=== PATIENT | female | born 1985 | race Caucasian/White ===

== ENCOUNTER 2022-12-29 11:46 | Outpatient (CLI) | payer SELFPAY ==
[2022-12-29 12:19] VITALS: BP 106/57; PULSE 64; RESP 17; TEMP 36.8; O2SAT 97; BMI 30.2
[2022-12-29 12:25] VITALS: BMI 30.2
[2022-12-29 12:29] LABS: Microscopic, Urine URINE MICROSCOPIC (MICROSCOPIC)
[2022-12-29 12:35] LABS: Appearance,Urine CLEAR (Clear); Bilirubin,Urine Negative (Negative); Blood, Urine Negative (Negative); Color,Urine YELLOW (Yellow); Fetal Membrane Rupture (Rapid) Negative (Negative); Glucose,Urine (UA) Negative (Negative); Ketones,Urine Negative (Negative); Leukocyte Esterase,Urine Negative (Negative); Nitrate,Urine Negative (Negative); Protein,Urine Negative (Negative); Specific Gravity, Urine <= 1.005 (1.005-1.030); Urobilinogen,Urine 0.2 EU/dl (0.2)
[2022-12-29 12:47] LABS: Amphetamine/Metha Screen,Urine Negative ng/ml (<1000); Benzodiazepines Screen,Urine Negative ng/ml (<200)
[2022-12-29 12:48] LABS: Barbiturates Screen,Urine Negative ng/ml (<200)
[2022-12-29 12:49] LABS: Bacteria,Urine Trace /lpf; Cannabinoid Screen,Urine Negative ng/ml (<50); Methadone Screen,Urine Negative ng/ml (<300); Squamous Epithelial Cell,Urine Occasional #/hpf (0-5)
[2022-12-29 12:50] LABS: Cocaine Screen,Urine Negative ng/ml (<300)
[2022-12-29 12:51] LABS: Opiate Screen,Urine Negative ng/ml (<300); Phencyclidine Screen,Urine Negative ng/ml (<25)
== END 2022-12-29 13:25 | disposition home or self-care (01) ==
LOC: OBOUT 11:48 → OB 11:49
PROVIDERS: Visit Provider Obstetrics & Gynecology
DX: O60.03 Preterm labor without delivery, third trimester (principal); Z3A.37 37 weeks gestation of pregnancy
CPT/HCPCS: 59025; 80305; 81001; 84112; G0463

== ENCOUNTER → 2023-01-03 23:08 | Outpatient (CLI) | payer SELFPAY | PROVIDERS: PCP Nurse Practitioner Obstetrics & Gynecology; Visit Provider Nurse Practitioner Obstetrics & Gynecology | DX: Z34.93 Encounter for supervision of normal pregnancy, unspecified, third trimester (principal); Z3A.37 37 weeks gestation of pregnancy | CPT/HCPCS: 86403 ==

== ENCOUNTER 2023-01-15 04:59 | Inpatient (IN) | payer SELFPAY ==
[2023-01-15 05:04] VITALS: BMI 30.2
[2023-01-15 05:38] LABS: Microscopic, Urine URINE MICROSCOPIC (MICROSCOPIC)
[2023-01-15 05:42] LABS: Appearance,Urine CLEAR (Clear); Bilirubin,Urine Negative (Negative); Blood, Urine Negative (Negative); Color,Urine YELLOW (Yellow); Glucose,Urine (UA) Negative (Negative); Ketones,Urine Negative (Negative); Leukocyte Esterase,Urine Negative (Negative); Nitrate,Urine Negative (Negative); Protein,Urine Negative (Negative); Urobilinogen,Urine 0.2 EU/dl (0.2)
[2023-01-15 05:43] LABS: Basophils % 0.2 % (0.1-2.0); Eosinophils # 0.1 K/mm3 (0.0-0.4); Eosinophils % 1.1 % (0.1-12.0); Hematocrit 36.4 % (37.0-47.0); Hemoglobin 11.5 g/dL (12.2-16.2); Lymphocytes # 1.8 K/mm3 (0.7-4.5); Lymphocytes % 29.6 % (10-50); Mean Corpuscular HGB Conc 31.7 g/dL (31.8-35.4); Mean Corpuscular Hemoglobin 25.5 pg (27.0-31.2); Mean Corpuscular Volume 80.4 fl (81-99); Mean Platelet Volume 8.2 fl (7.4-10.4); Monocytes # 0.5 K/mm3 (0.1-1.0); Neutrophils # 3.5 K/mm3 (1.8-7.8); Platelet Count 223 K/mm3 (142-424); Red Blood Count 4.52 M/mm3 (4.20-5.40); Red Cell Distribution Width 15.4 % (11.5-17.5); White Blood Count 5.9 K/mm3 (4.8-10.8)
[2023-01-15 05:44] VITALS: BP 120/70; PULSE 83; RESP 18; TEMP 36.8; O2SAT 99; BMI 30.2
[2023-01-15 05:54] LABS: Amphetamine/Metha Screen,Urine Negative ng/ml (<1000); Barbiturates Screen,Urine Negative ng/ml (<200)
[2023-01-15 05:55] LABS: Benzodiazepines Screen,Urine Negative ng/ml (<200)
[2023-01-15 05:56] LABS: Bacteria,Urine Trace /lpf; Cannabinoid Screen,Urine Negative ng/ml (<50); Cocaine Screen,Urine Negative ng/ml (<300); WBC,Urine Occasional #/hpf (0-3)
[2023-01-15 05:57] LABS: Methadone Screen,Urine Negative ng/ml (<300); Opiate Screen,Urine Negative ng/ml (<300)
[2023-01-15 05:58] LABS: Phencyclidine Screen,Urine Negative ng/ml (<25)
--- NOTE | 2023-01-15 08:38 | EXP.HP ---
History of Present Illness *Admission Date: 01/15/23 *Reason for visit:: Term , grand multiparity, advanced maternal age *History of present illness: She is a 37-year-old 10 para 6 aborta 3 who is at term. She wanted to be delivered in hospital. 39+3 weeks gestational age B+ blood GBS negative PFSH PFS Disclaimer: The information contained in this section may have been updated after the patient was seen, as this information can be updated by other users. Surgical History No history of previous surgery Family History No significant family history Social History Smoking Status: Never smoker alcohol intake: never substance use type: denies use current occupational status: unemployed Travel in the last 8 weeks: None Review of Systems Review of Systems Review of systems:: pertinent systems reviewed and negative unless documented below Meds Home Medications and Allergies Home Medications Medication Instructions Recorded Confirmed Type No Known Home Medications 01/15/23 01/15/23 History New Prescriptions to Start Prescriptions: Allergies Allergy/AdvReac Type Severity Reaction Status Date / Time Opioids - Morphine Analogues AdvReac Mild Verified 01/03/23 13:51 Exam Data for Last 24 hours Vital signs and Labs for Last 24 Hours: Temp Pulse Resp BP Pulse Ox 98.2 F 83 18 120/70 99 01/15/23 05:44 01/15/23 05:44 01/15/23 05:44 01/15/23 05:44 01/15/23 05:44 Laboratory Results - last 24 hr 01/15/23 05:10: Urine Color Yellow, Urine Appearance Clear, Urine pH 8.0, Ur Specific [place] 1.010, Urine Protein Negative, Urine Glucose (UA) Negative, Urine Ketones Negative, Urine Blood Negative, Urine Nitrate Negative, Urine Bilirubin Negative, Urine Urobilinogen 0.2, Ur Leukocyte Esterase Negative, Urine RBC None, Urine WBC Occasional, Ur Squamous Epith Cells 3-5, Urine Bacteria Trace, Urine Opiates Screen Negative, Urine Methadone Screen Negative, Ur Barbituates Screen Negative, Ur Phencyclidine Scrn Negative, Ur Amphetamines Screen Negative, U Benzodiazepines Scrn Negative, Urine Cocaine Screen Negative, U Marijuana (THC) Screen Negative 01/15/23 05:25: WBC 5.9, RBC 4.52, Hgb 11.5 L, Hct 36.4 L, MCV 80.4 L, MCH 25.5 L, MCHC 31.7 L, RDW 15.4, Plt Count 223, MPV 8.2, Neut % (Auto) 60.0, Lymph % (Auto) 29.6, [place] % (Auto) 9.0, Eos % (Auto) 1.1, Baso % (Auto) 0.2, Neut # (Auto) 3.5, Lymph # (Auto) 1.8, [place] # (Auto) 0.5, Eos # (Auto) 0.1, Baso # (Auto) 0.0, Blood Type B Positive, Antibody Screen Negative, Crossmatch (AHG) See Detail 01/15/23 07:40: Blood Type Confirm B Positive I & O for Last 24 hours: Intake & Output 01/12/23 01/13/23 01/14/23 01/15/23 11:59 11:59 11:59 11:59 Weight 171 lb Constitutional Constitutional: no acute distress *Routine HEENT Exam Head: Present normocephalic Eye: Present EOMI and PERRL ENT: Present mucous membranes moist *Routine Neck Exam Neck: Present supple; Absent lymphadenopathy *Routine Respiratory Exam Respiratory: Present CTA bilaterally *Routine Cardiovascular Exam Cardiovascular: Present RRR *Routine Abdominal Exam Abdominal: Present soft and normoactive bowel sounds; Absent tenderness *Routine Rectal Exam Rectal:: deferred *Routine Genitalia Exam Genitalia:: deferred *Routine Extremities Exam Extremities: Absent cyanosis, clubbing or edema *Routine Skin Exam Skin: Present warm; Absent rash *Routine Neurological Exam Neurological: Present alert and oriented X3 Assessment and Plan *Assessment and plan (1) Advanced maternal age in multigravida: Status: Acute Qualifiers: Trimester: third trimester Qualified Code(s): O09.523 - Supervision of elderly multigravida, third trimester Category: Medical Code(s): O09.529 - Supervision of elderly
--- NOTE | 2023-01-15 08:40 | EXP.LABOR.NO ---
Labor Note Subjective: Date: 01/15/23 Time: 08:20 regular contraction Objective: NST:: Reactive Contractions:: every 2-3 minutes Cervical Dilation:: 3-4 Effacement:: 75% Station: -1 Membranes: artificially ruptured Fetus: Monitoring?: Yes monitoring type:: External Assessment: Labor progressing?: Yes Cephalopelvic disproportion?: No Plan: Anesthesia for epidural?: No Continue to labor down?: Yes Plan for ?: No Continue to monitor?: Yes Start pushing?: No Comment:: I ruptured her membranes and there was minimal fluid. Cervix is 3 to 4 cm. Baby is well applied to the cervix.
--- NOTE | 2023-01-15 12:07 | EXP.LABOR.NO ---
Labor Note Subjective: Date: 01/15/23 Time: 10:40 regular contraction Objective: NST:: Reactive Contractions:: every 2-3 minutes Cervical Dilation:: 4 Effacement:: 75% Station: -1 Membranes: artificially ruptured Fetus: Monitoring?: Yes monitoring type:: External Assessment: Labor progressing?: Yes Cephalopelvic disproportion?: No Plan: Anesthesia for epidural?: No Continue to labor down?: Yes Plan for ?: No Continue to monitor?: Yes Start pushing?: No Comment:: She is doing well. She is having regular contractions. We will plan a vaginal delivery.
--- NOTE | 2023-01-15 12:55 | P.PCN_ITS ---
Delivery Note Delivery Date:: 01/15/23 Delivery Time:: 12:45 Anesthesia Type: None Was labor medically induced?: Yes Induction method: per pitocin protocol Gestational age (weeks): 39 delivered prior to 39 weeks?: No Infant Gender: Male at 1 minute: 8 at 5 minutes: 9 Delivery Procedure:: She is a 37-year-old 10 para 6 Hindu lady who requested delivery in hospital. She was started on IV oxytocin had her membranes ruptured. She progressed to full dilation and delivered spontaneously a liveborn male child at 12:45 PM in the afternoon of January 15, 2023. On deliver the head the anterior shoulder then easily delivered followed by the rest the 's body at raumatically. The baby was vigorous and we allowed the cord to continue to pulsate for approximately 1 minute. The cord was then doubly clamped and cut and the infant was placed on the mother's abdomen for further care. The nurses assigned Apgars of 8 at 1 minute and 9 at 5 minutes. She received IV oxytocin and using gentle traction on the cord and countertraction the fundus I was able to easily deliver the placenta intact. It had normal three-vessel cord. There were no perineal or vaginal lacerations. She has B Rh+ blood, she is group B streptococcus negative. Estimated blood loss was approximately 150 cc. Her post acute care nurse practitioner is Dr. Pisano. Placental Delivery Description: Spontaneous
--- NOTE | 2023-01-15 16:05 | EXP.DC.SUM ---
General Admission date:: 01/15/23 Discharge date: 01/15/23 HPI HPI HPI: She is a 37-year-old 10 para 6 aborta 3 who is at term. She wanted to be delivered in hospital. 39+3 weeks gestational age B+ blood GBS negative Hospital Course Hospital Course Hospital Course: She was started on IV oxytocin and had her membranes ruptured. She progressed to full dilation and delivered spontaneously a liveborn male child in the afternoon January 15, 2023. The baby had Apgars of 8 at 1 minute and 9 at 5 minutes. He weighed 6 pounds 11 ounces. She has done well although did have some extra bleeding and as result of that we elected to give her Treximet. She has done well since then. She has B+ blood, she is group B streptococcus negative. She is discharged home to follow-up as needed. She will follow-up with her cloth bolt bander. She was given a dose of Cytotec 400 mcg prior to discharge to control any bleeding when she gets home. She was given the use instructions with respect to limiting her activity. She will continue with her vitamins. She will be breast-feeding. Exam Data for Last 24 hours Vital signs and Labs for Last 24 Hours: Temp Pulse Resp BP Pulse Ox 98.2 F 83 18 120/70 99 01/15/23 05:44 01/15/23 05:44 01/15/23 05:44 01/15/23 05:44 01/15/23 05:44 Laboratory Results - last 24 hr 01/15/23 05:10: Urine Color Yellow, Urine Appearance Clear, Urine pH 8.0, Ur Specific [place] 1.010, Urine Protein Negative, Urine Glucose (UA) Negative, Urine Ketones Negative, Urine Blood Negative, Urine Nitrate Negative, Urine Bilirubin Negative, Urine Urobilinogen 0.2, Ur Leukocyte Esterase Negative, Urine RBC None, Urine WBC Occasional, Ur Squamous Epith Cells 3-5, Urine Bacteria Trace, Urine Opiates Screen Negative, Urine Methadone Screen Negative, Ur Barbituates Screen Negative, Ur Phencyclidine Scrn Negative, Ur Amphetamines Screen Negative, U Benzodiazepines Scrn Negative, Urine Cocaine Screen Negative, U Marijuana (THC) Screen Negative 01/15/23 05:25: WBC 5.9, RBC 4.52, Hgb 11.5 L, Hct 36.4 L, MCV 80.4 L, MCH 25.5 L, MCHC 31.7 L, RDW 15.4, Plt Count 223, MPV 8.2, Neut % (Auto) 60.0, Lymph % (Auto) 29.6, [place] % (Auto) 9.0, Eos % (Auto) 1.1, Baso % (Auto) 0.2, Neut # (Auto) 3.5, Lymph # (Auto) 1.8, [place] # (Auto) 0.5, Eos # (Auto) 0.1, Baso # (Auto) 0.0, Blood Type B Positive, Antibody Screen Negative, Crossmatch (AHG) See Detail 01/15/23 07:40: Blood Type Confirm B Positive I & O for Last 24 hours: Intake & Output 01/13/23 01/14/23 01/15/23 01/16/23 11:59 11:59 11:59 11:59 Weight 171 lb Constitutional Constitutional: no acute distress *Routine Respiratory Exam Respiratory: Present normal respiratory effort; Absent accessory muscle use Results Data Completed and Pending Labs on day of discharge: Labs from last 24 hours 01/15/23 01/15/23 01/15/23 07:40 05:25 05:10 WBC 5.9 RBC 4.52 Hgb 11.5 L Hct 36.4 L MCV 80.4 L MCH 25.5 L MCHC 31.7 L RDW 15.4 Plt Count 223 MPV 8.2 Neut % (Auto) 60.0 Lymph % (Auto) 29.6 [place] % (Auto) 9.0 Eos % (Auto) 1.1 Baso % (Auto) 0.2 Neut # (Auto) 3.5 Lymph # (Auto) 1.8 [place] # (Auto) 0.5 Eos # (Auto) 0.1 Baso # (Auto) 0.0 Urine Color Yellow Urine Appearance Clear Urine pH 8.0 Ur Specific [place] 1.010 Urine Protein Negative Urine Glucose (UA) Negative Urine Ketones Negative Urine Blood Negative Urine Nitrate Negative Urine Bilirubin Negative Urine Urobilinogen 0.2 Ur Leukocyte Esterase Negative Urine RBC None Urine WBC Occasional Ur Squamous Epith Cells 3-5 Urine Bacteria Trace Urine Opiates Screen Negative Urine Methadone Screen Negative Ur Barbituates Screen Negative Ur Phencyclidine Scrn Negative Ur Amphetamines Screen Negative U Benzodiazepines Scrn Negative Urine Cocaine Screen Negative U Marijuana (THC) Scre
== END 2023-01-15 18:08 | disposition home or self-care (01) | DRG 807 ==
PROVIDERS: Admitting Provider Obstetrics & Gynecology; PCP Nurse Practitioner Obstetrics & Gynecology; Visit Provider Obstetrics & Gynecology
DX: O80 Encounter for full-term uncomplicated delivery (principal); Z37.0 Single live birth; Z3A.39 39 weeks gestation of pregnancy
CPT/HCPCS: 59409; 36415; 59025; 80305; 81001; 85025; 86850